=== PATIENT | female | born 1955 | race Caucasian/White ===

== ENCOUNTER 2017-07-23 08:55 | Emergency (ER) | payer OTHER ==
[~2017-07-23] VITALS: Ht 175.3 cm; Wt 91.2 kg
[~2017-07-23 08:55] MED LIST: HYDROCHLOROTHIA25 MG PO; IMITREX100 MG PO; K-DUR20 MEQ PO; NORVIR100 M1 PO; NORVIR100 MG PO; REYATAZ100 MG PO; REYATAZ300 MG PO; TRUVADA1 TABLET PO; ULTRAM50 MG PO
[2017-07-23] MEDS ORDERED: MOTRIN600 MG PO (10:53)
[2017-07-23 11:09] VITALS: BP 154/98
== END 2017-07-23 11:12 | disposition home or self-care (01) ==
LOC: EME 08:55
DX: S83.91XA Sprain of unspecified site of right knee, initial encounter (principal); W01.0XXA Fall on same level from slipping, tripping and stumbling without subsequent striking against object, initial encounter; Z91.040 Latex allergy status; Z88.0 Allergy status to penicillin; Z88.8 Allergy status to other drugs, medicaments and biological substances
CPT/HCPCS: 73564; 99281; 99284